=== PATIENT | female | born 1945 | race Hispanic/Latino ===

== ENCOUNTER 2024-12-13 13:11 | Outpatient (RCR) | payer OTHER ==
[~2024-12-13 13:11] MED LIST: ASPIRIN EC81 MG PO; ATENOLOL50 MG PO; CITALOPRAM HBR20 MG PO; FLONASE16 GM; IBUPROFEN600 MG PO; LIPITOR40 MG PO; LORATADINE10 MG PO; NAPROSYN500 MG PO; OMEPRAZOLE40 MG PO; ROBAXIN500 MG PO
== END 2025-01-08 ==
LOC: PT 13:11
PROVIDERS: ATTEND Specialist
DX: M17.11 Unilateral primary osteoarthritis, right knee (principal)